=== PATIENT | female | born 1985 | race Caucasian/White ===

== ENCOUNTER 2017-10-02 22:49 | Emergency (ER) | payer OTHER ==
--- NOTE | 2017-10-02 23:22 | ED Physician Documentation ---
History of Present Illness - Stated complaint Stated Complaint: WEAKNESS/LOW HEART RATE - Chief complaint Chief Complaint: General - History obtained from History obtained from: Patient, Family - History of Present Illness Timing: How many hours ago (2) Pain level max: 2 Pain level now: 2 - Additonal information Additional information: Patient is a 32-year-old female who states she was lying in bed feeling very relaxed when she looked at her wristwatch and noticed that her heart rate was 39. It increased back to its normal rate when she got up and started moving around. She does not know what her normal resting heart rate is. She did not take her pulse. She now complains of sharp left-sided chest pain as well. No recent travel, immobilization, surgery. She does not smoke. Nothing makes it better or worse. Review of Systems Constitutional: denies: Fever, Chills Ears: denies: Ear pain Nose: denies: Rhinorrhea / runny nose, Congestion Throat: denies: Sore throat Cardiac: reports: Chest pain / pressure (Left sided, sharp) Respiratory: denies: Dyspnea, Cough, Hemoptysis, Wheezing GI: denies: Abdominal Pain, Nausea, Vomiting, Diarrhea : denies: Now EGA Skin: denies: Rash Musculoskeletal: denies: Neck pain, Back pain Neurologic: denies: Headache PD PAST MEDICAL HISTORY - Past Medical History Past Medical History: No - Past Surgical History Past Surgical History: Yes HEENT: Tonsil/Adenoidectomy - Allergies Allergies/Adverse Reactions: Allergies Allergy/AdvReac Type Severity Reaction Status Date / Time amoxicillin Allergy Hives Verified 10/02/17 23:05 - Social History Does the pt smoke?: No Smoking Status: Never smoker Does the pt drink ETOH?: Yes Does the pt have substance abuse?: No - Immunizations Immunizations are current?: Yes PD ED PE NORMAL - Vitals Vital signs reviewed: Yes - General General: Alert and oriented X 3 - HEENT HEENT: Moist mucous membranes - Neck Neck: Supple, no meningeal sign - Cardiac Cardiac: RRR, No murmur, Strong equal pulses - Respiratory Respiratory: No respiratory distress, Clear bilaterally - Abdomen Abdomen: Soft, Non tender, Non distended - Back Back: No CVA TTP, No spinal TTP - Derm Derm: Warm and dry, No rash - Extremities Extremities: No edema, No calf tenderness / cord - Neuro Neuro: Alert and oriented X 3 - Psych Psych: Normal mood, Normal affect Results - Vitals Vitals: Vital Signs - 24 hr 10/02/17 10/03/17 23:02 00:00 Temperature 36.7 C Heart Rate 70 67 Respiratory 16 14 Rate Blood Pressure 125/86 H 111/78 O2 Saturation 99 99 Oxygen O2 Source Room air - EKG (time done) 2315 Rate: Rate (enter#) (81) Rhythm: NSR [place]: Normal Intervals: Normal FL QRS: Normal Ischemia: Normal ST segments - Labs Labs: Laboratory Tests 10/02/17 10/02/17 10/02/17 23:20 23:40 23:40 WBC 7.2 RBC 4.46 Hgb 13.1 Hct 39.0 MCV 87.3 MCH 29.4 MCHC 33.7 RDW 13.2 Plt Count 222 MPV 7.0 L Neut # (Auto) 3.5 Lymph # (Auto) 3.0 [place] # (Auto) 0.5 Eos # (Auto) 0.1 Baso # (Auto) 0.0 Absolute Nucleated RBC 0.00 Nucleated RBC % 0.0 Sodium 139 Potassium 3.6 Chloride 103 Carbon Dioxide 31 Anion Gap 5.0 L BUN 11 Creatinine 0.7 Estimated GFR (MDRD) 98 Glucose 101 H Calcium 9.7 Total Bilirubin 0.9 AST 17 ALT 13 Alkaline Phosphatase 35 L Troponin I Total Protein 6.8 Albumin 4.0 Globulin 2.8 Albumin/Globulin Ratio 1.4 Lipase 29 TSH Free T4 Urine Color YELLOW Urine Clarity CLEAR Urine pH 6.5 Ur Specific [place] <=1.005 Urine Protein NEGATIVE Urine Glucose (UA) NEGATIVE Urine Ketones NEGATIVE Urine Occult Blood SMALL H Urine Nitrite NEGATIVE Urine Bilirubin NEGATIVE Urine Urobilinogen 0.2 (NORMAL) Ur Leukocyte Esterase SMALL H Urine RBC 0-5 Urine WBC 6-10 H Ur Squamous Epith Cells MOD Squamous H Urine Bacteria Few Ur Microscopic Review INDICATED Urine Culture Comments NOT INDICATED Urine HCG, Qual NEGATIVE 10/02/17 10/02/17 23:40 23:40 WBC RBC Hgb Hct MCV MCH MCHC RDW Plt Count MPV Neut # (Auto) Lymph # (Auto) [place] # (Auto) Eos # (Auto) Baso # (Auto) Absolute Nucleated RBC Nucleated RBC % Sodium Potassium Chloride Carbon Dioxide Anion Gap BUN Creatinine Estimated GFR (MDRD) Glucose Calcium Total Bilirubin AST ALT Alkaline Phosphatase Troponin I < 0.04 Total Protein Albumin Globulin Albumin/Globulin Ratio Lipase TSH 2.20 Free T4 1.04 Urine Color Urine Clarity Urine pH Ur Specific [place] Urine Protein Urine Glucose (UA) Urine Ketones Urine Occult Blood Urine Nitrite Urine Bilirubin Urine Urobilinogen Ur Leukocyte Esterase Urine RBC Urine WBC Ur Squamous Epith Cells Urine Bacteria Ur Microscopic Review Urine Culture Comments Urine HCG, Qual - Rads (name of study) cxr Radiology: Prelim report reviewed, EMP read contemporaneously, See rad report ( normal) PD MEDICAL DECISION MAKING - ED course Complexity details: reviewed results, re-evaluated patient, considered differential, d/w patient ED course: Patient is a 32-year-old female who presents to the emergency department with left-sided sharp chest pain and A low pulse rate reading on her watch earlier today. Symptoms resolved in the emergency department. No acute findings on x- ray, EKG, laboratory testing. She is well-appearing, nontoxic. Afebrile. No evidence of aortic dissection, pulmonary embolus, acute PR. Patient counseled regarding signs and symptoms for which I believe and urgent re-evaluation would be necessary. Patient with good understanding of and agreement to plan and is comfortable going home at this time This document was made in part using voice recognition software. While efforts are made to proofread this document, sound alike and grammatical errors may occur. - Sepsis Event Vital Signs: Vital Signs - 24 hr 10/02/17 10/03/17 23:02 00:00 Temperature 36.7 C Heart Rate 70 67 Respiratory 16 14 Rate Blood Pressure 125/86 H 111/78 O2 Saturation 99 99 Oxygen O2 Source Room air Departure - Departure Disposition: 01 Home, Self Care Clinical Impression: Bradycardia, Weakness Condition: Good Instructions: ED Bradycardia Follow-Up: your,doctor in 1 week [Other] Comments: The cause of your symptoms is unclear tonight. Return if you worsen. Make sure to follow-up closely with your doctor for further care. Your laboratory testing including your thyroid testing is normal Discharge Date/Time: 10/03/17 00:53
[2017-10-02 23:41] LABS: BILIRUBIN,URINE NEGATIVE (NEGATIVE); GLUCOSE, URINE (UA) NEGATIVE (NEGATIVE); KETONES,URINE (UA) NEGATIVE (NEGATIVE); LEUKOCYTE ESTERASE, URINE SMALL (NEGATIVE); NITRITE,URINE NEGATIVE (NEGATIVE); OCCULT BLOOD,URINE SMALL (NEGATIVE); PH,URINE 6.5 PH (5.0-7.5); PROTEIN,URINE NEGATIVE (NEGATIVE); UROBILINOGEN,URINE 0.2 (NORMAL) E.U./dL (NORMAL)
[2017-10-02 23:42] LABS: CLARITY,URINE CLEAR (CLEAR)
[2017-10-02 23:43] LABS: HCG UR QUAL NEGATIVE
[2017-10-02 23:47] LABS: BACTERIA,URINE Few /HPF (None Seen); RBC,URINE 0-5 /HPF (0-5); SQUAMOUS EPITHELIAL CELL,UR MOD Squamous (<= Few)
[2017-10-03] LABS: BASOPHILS % (AUTO) 0.2 %; EOSINOPHILS # (AUTO) 0.1 10^3/uL (0.0-0.7); EOSINOPHILS % (AUTO) 1.9 %; HGB - HEMOGLOBIN 13.1 g/dL (12.0-16.0); LYMPHOCYTES % (AUTO) 42.3 %; MEAN CORPUSCULAR HEMOGLOBIN 29.4 pg (27.0-31.0); MEAN CORPUSCULAR HGB CONC 33.7 g/dL (32.0-36.0); MEAN CORPUSCULAR VOLUME 87.3 fL (81.0-99.0); MONOCYTES # (AUTO) 0.5 10^3/uL (0.0-1.0); MONOCYTES % (AUTO) 6.7 %; NEUTROPHILS # (AUTO) 3.5 10^3/uL (1.5-6.6); NEUTROPHILS % (AUTO) 48.9 %; PLT - PLATELET COUNT 222 10^3/uL (130-450); RED BLOOD COUNT 4.46 10^6/uL (4.20-5.40); RED CELL DISTRIBUTION WIDTH 13.2 % (12.0-15.0); WHITE BLOOD COUNT 7.2 x10^3/uL (4.8-10.8)
--- NOTE | 2017-10-03 00:02 | XRAY Report ---
Procedure Date: 10/02/2017 Accession Number: [id number] / [id number] Procedure: XR - Chest 1 View X-Ray CPT Code: 14477 FULL RESULT: EXAM: CHEST RADIOGRAPHY EXAM DATE: 10/02/2017 11:55 PM. CLINICAL HISTORY: Chest pain. COMPARISON: None. TECHNIQUE: 1 view. FINDINGS: Lungs/Pleura: No alveolar consolidation or pleural effusion seen. No pneumothorax. Mediastinum: Within exam limitations, the cardiomediastinal contour is normal. Other: None. IMPRESSION: 1. No acute abnormality seen in the chest. RADIA
[2017-10-03 00:13] LABS: ALBUMIN/GLOBULIN RATIO 1.4 (1.0-2.2); BILIRUBIN,TOTAL 0.9 mg/dL (0.2-1.0); CALCIUM 9.7 mg/dL (8.5-10.3); CREATININE 0.7 mg/dL (0.4-1.0); TOTAL PROTEIN 6.8 g/dL (6.7-8.2)
[2017-10-03 00:29] VITALS: BP 111/78
[2017-10-03 00:41] LABS: THYROID STIMULATING HORMONE 2.2 uIU/mL (0.34-5.60)
[2017-10-03 00:43] LABS: FREE T4 (FREE THYROXINE) 1.04 ng/dL (0.58-1.64)
== END 2017-10-03 00:53 | disposition home or self-care (01) ==
LOC: ED 22:49
DX: R00.1 Bradycardia, unspecified (principal); R53.1 Weakness
CPT/HCPCS: 36415; 71045; 80053; 81001; 81003; 81025; 83690; 84439; 84443; 84484; 85025; 87086; 93005; 99283

== ENCOUNTER 2017-12-19 17:35 | Emergency (ER) | payer OTHER ==
--- NOTE | 2017-12-19 19:21 | ED Physician Documentation ---
PD HPI URI - Stated complaint Stated Complaint: SOA/COUGH - Chief complaint Chief Complaint: Resp - History obtained from History obtained from: Patient - History of Present Illness Timing - onset: How many days ago (few) Timing duration: Days (few) Timing details: Gradual onset, Still present Associated symptoms: Fever (subjective), Chills, Productive cough, Dyspnea. No: Nasal congestion, Sore throat, Bilateral edema, Unilateral edema Contributing factors: COPD / asthma. No: Sick contact, Travel Improves by: Rest Worsened by: Activity, Breathing Recently seen: Not recently seen Review of Systems Constitutional: reports: Fever, Chills, Myalgias Nose: denies: Rhinorrhea / runny nose, Congestion Throat: denies: Sore throat Cardiac: reports: Chest pain / pressure (with coughing) Respiratory: reports: Dyspnea, Cough, Wheezing GI: denies: Nausea, Vomiting Skin: denies: Rash PD PAST MEDICAL HISTORY - Past Medical History Past Medical History: No Cardiovascular: None Respiratory: Asthma Neuro: None Endocrine/Autoimmune: None - Past Surgical History Past Surgical History: Yes HEENT: Tonsil/Adenoidectomy - Present Medications Home Medications: Ambulatory Orders Medication Instructions Recorded Confirmed Albuterol Sulf [Ventolin Hfa 2 - 3 puffs INH Q4HR PRN #1 inhaler 12/19/17 Inhaler] Benzonatate [Tessalon] 100 mg PO TID PRN #25 capsule 12/19/17 Dexamethasone [Decadron] 4 mg PO DAILY #5 tablet 12/19/17 - Allergies Allergies/Adverse Reactions: Allergies Allergy/AdvReac Type Severity Reaction Status Date / Time amoxicillin Allergy Hives Verified 10/02/17 23:05 - Social History Does the pt smoke?: No Smoking Status: Never smoker Does the pt drink ETOH?: Yes Does the pt have substance abuse?: No - Immunizations Immunizations are current?: Yes PD ED PE NORMAL - Vitals Vital signs reviewed: Yes - General General: Alert and oriented X 3, Well developed/nourished - HEENT HEENT: Pharynx benign - Neck Neck: Supple, no meningeal sign, No adenopathy - Cardiac Cardiac: RRR, No murmur - Respiratory Respiratory: No: Clear bilaterally (no coarse sounds; has tight expirations, with hint of wheezing. ) - Abdomen Abdomen: Soft, Non tender Results - Vitals Vitals: Vital Signs - 24 hr 12/19/17 17:57 Temperature 36.6 C Heart Rate 63 Respiratory 16 Rate Blood Pressure 115/72 O2 Saturation 100 Oxygen O2 Source Room air PD MEDICAL DECISION MAKING - ED course Complexity details: considered differential, d/w patient Departure - Departure Disposition: 01 Home, Self Care Clinical Impression: URI (upper respiratory infection) Qualifiers: URI type: unspecified URI Qualified Code(s): J06.9 - Acute upper respiratory infection, unspecified Dyspnea Qualifiers: Dyspnea type: shortness of breath Qualified Code(s): R06.02 - Shortness of breath Condition: Stable Record reviewed to determine appropriate education?: Yes Instructions: ED URI Viral W Wheezing Follow-Up: YAJAIRA OSHEA PA-C [Primary Care Provider] - Prescriptions: Albuterol Sulf [Ventolin Hfa Inhaler] 2 - 3 puffs INH Q4HR PRN #1 inhaler PRN Reason: Shortness Of Air/Wheezing Benzonatate [Tessalon] 100 mg PO TID PRN #25 capsule PRN Reason: Cough Dexamethasone [Decadron] 4 mg PO DAILY #5 tablet Comments: Your symptoms sound likely to be a viral infection although environmental allergies would be a possibility as well. For these he would use an albuterol inhaler 2-3 puffs 4 times a day as needed for shortness of breath and wheezing. Use Decadron steroid anti-inflammatory for 5 more days. He can add Tessalon if needed for the cough. Tylenol if needed for pains or aches. Recheck if not improving over the next several days to week. Return sooner if worsening. Discharge Date/Time: 12/19/17 20:27
[2017-12-19] MEDS ORDERED: BENZONATATE 100 MG CAPSULE PO STA (19:59)
[2017-12-19] MEDS ORDERED: ALBUTEROL NEB 2.5 MG/3 ML INH STA (19:59)
[2017-12-19] MEDS ORDERED: DEXAMETHASONE 10 MG/ML VIAL PO STA (19:59)
[2017-12-19 20:22] VITALS: BP 113/58
== END 2017-12-19 20:27 | disposition home or self-care (01) ==
LOC: ED 17:35
DX: J06.9 Acute upper respiratory infection, unspecified (principal)
CPT/HCPCS: 94640; 94664; 99283; A9270

== ENCOUNTER 2018-07-04 23:49 | Inpatient (IN) | payer OTHER ==
[2018-07-05] MEDS ORDERED: SODIUM CHLORIDE FLUSH 0.9% 10 ML SYRINGE IVP PRN (00:44)
[2018-07-05] MEDS ORDERED: OXYTOCIN/SODIUM CHLORIDE 500 ML IV ONE (00:47)
[2018-07-05] MEDS ORDERED: LACTATED RINGERS 1,000 ML IV ONE (00:47)
[2018-07-05] MEDS ORDERED: SODIUM CHLORIDE FLUSH 0.9% 10 ML SYRINGE ONE (00:47)
[2018-07-05 01:31] LABS: BASOPHILS # (AUTO) 0.1 10^3/uL (0.0-0.1); BASOPHILS % (AUTO) 0.7 %; EOSINOPHILS # (AUTO) 0.1 10^3/uL (0.0-0.7); EOSINOPHILS % (AUTO) 0.8 %; HGB - HEMOGLOBIN 11.3 g/dL (12.0-16.0); LYMPHOCYTES % (AUTO) 26.2 %; MEAN CORPUSCULAR HEMOGLOBIN 28.1 pg (27.0-31.0); MEAN CORPUSCULAR HGB CONC 32.7 g/dL (32.0-36.0); MEAN PLATELET VOLUME 6.4 fL (7.9-10.8); MONOCYTES # (AUTO) 0.8 10^3/uL (0.0-1.0); MONOCYTES % (AUTO) 6.7 %; NEUTROPHILS # (AUTO) 7.4 10^3/uL (1.5-6.6); NEUTROPHILS % (AUTO) 65.6 %; PLT - PLATELET COUNT 246 10^3/uL (130-450); RED CELL DISTRIBUTION WIDTH 12.9 % (12.0-15.0); WHITE BLOOD COUNT 11.3 x10^3/uL (4.8-10.8)
--- NOTE | 2018-07-05 06:01 | HISTORY & PHYSICAL EXAMINATION ---
Admit History - Visit Reason Visit Reason: Contractions (Pt persented with contractions which started at 1600 07/04/18. became very strong at 2100. presented at 2400 4 cm with blooody show.) - : 1 Parity: 0 Premature: 0 Ectopic: 0 : 0 Care: positive: DEYSI-Toney (Started Care [facility] at 10 weeks with early US for dating. Transfered at 20 weeks), Other (Transfered at 24 weeks to [place], [place]. regular visits) Risk/History: positive: Other (Pt gives Hx of calcifications of the placenta at 36 weeks) Smoking Status: Former smoker - Mother's Labs Mother's Blood Type: positive: A Mother's RH: positive: Positive GBS: positive: Group B Step Negative Rubella Status: positive: Immune Meds/Allgy - Home Medications Home Medications: Ambulatory Orders Medication Instructions Recorded Confirmed Albuterol Sulf [Ventolin Hfa 2 - 3 puffs INH Q4HR PRN #1 inhaler 12/19/17 Inhaler] Benzonatate [Tessalon] 100 mg PO TID PRN #25 capsule 12/19/17 Dexamethasone [Decadron] 4 mg PO DAILY #5 tablet 12/19/17 - Allergies Allergies/Adverse Reactions: Allergies Allergy/AdvReac Type Severity Reaction Status Date / Time amoxicillin Allergy Hives Verified 10/02/17 23:05 Review of Systems - Constitutional Constitutional: denies: Fatigue - Eyes Eyes: denies: Pain - Psychiatric Psychiatric: reports: Anxiety Physical - Abdominal Exam Vital Signs: Temp Pulse Resp BP Pulse Ox 36.7 C 106 H 16 123/85 H 100 07/05/18 00:44 07/05/18 00:44 07/05/18 00:44 07/05/18 00:44 07/05/18 00:44 Contraction Intensity: positive: Strong (Currently having strong contractions) Uterine Resting Tone: positive: Soft - Monitoring Heart Rate Baseline: 130 Strip Review: positive: Category I - Presentation Presentation: positive: Vertex - Vaginal Exam Membranes: positive: Membranes intact (AROM of forbag minimal fluid seen) Dilation (in cm): 8 Effacement (%): 100 Station: positive: 1 Cervical Position: positive: Anterior - Speculum Exam Findings: positive: Other (AROM minimal fluid) Plan for Labor - Plan For Labor I expect patient to be DC'd or transferred within 96 hours.: Yes Plan for Labor: Physical exam PEREOM Heart RRR Lungs Clear Abdomin Gravid with contractions DTR +2 bilateral no edema Impression: 32 yo 39.4 weeks Early labor Pt requested to stay here. Admit and AROM expect . Pt has gone natural.
[2018-07-05] MEDS: LACTATED RINGERS 1,000 ML IV SCH ×5 (07:00→14:26)
[2018-07-05] MEDS ORDERED: LIDOCAINE-MPF 1% 30 ML VIAL ID PRN (07:05)
[2018-07-05] MEDS ORDERED: LIDOCAINE 1% 50 ML MDV TD SCH (07:05)
[2018-07-05] MEDS ORDERED: METHYLERGONOVINE 0.2 MG/ML AMP ONE (07:08)
[2018-07-05] MEDS ORDERED: oxyCODONE 5 MG TABLET PO PRN (07:56)
[2018-07-05] MEDS ORDERED: MAGNESIUM HYDROXIDE 2,400 MG/30 ML UDC PO PRN (07:56)
[2018-07-05] MEDS ORDERED: ONDANSETRON 4 MG/2 ML VIAL IVP PRN (07:56)
[2018-07-05] MEDS ORDERED: diphenhydrAMINE 25 MG CAPSULE PO PRN (07:56)
[2018-07-05] MEDS ORDERED: OXYTOCIN/SODIUM CHLORIDE 500 ML IV PRN (07:56)
[2018-07-05] MEDS ORDERED: HYDROCORTISONE 1% CREAM 28 GM TUBE PR PRN (07:56)
--- NOTE | 2018-07-05 08:02 | DELIVERY NOTE ---
Delivery Note - Labor Labor: positive: Spontaneous - Delivery Method Delivery Method: positive: Spontaneous vaginal delivery - Presentation Presentation: positive: Vertex, ROP - right occiput posterior - Nuchal Cord Nuchal Cord: positive: Present (loose X 1) - Anesthetic Anesthetic Type: Anesthetic: positive: Lidocaine - 1% plain Volume: positive: Other (30 ml) - Amniotic Fluid Description Amniotic Fluid Description: positive: Clear - Episiotomy Type Episiotomy Type: positive: Midline - Laceration Laceration: positive: 2nd degree - Suture Suture Type: positive: Vicryl Suture Size: positive: 3-0 - Delivery Outcome Delivery Outcome: positive: Livebirth - [place]: positive: Placed in direct skin contact with mother, Bulb syringe, [place] used sex: positive: Male - Placenta Placenta: positive: Intact, Spontaneous, Other (Sent for Pathology. Hx of early calcification) - Estimated Blood Loss Estimated Blood Loss (in cc): 350 - Post Delivery Events Post Delivery Events: positive: No post delivery events - Delivery Comments (Free Text/Narrative) Delivery Comments (Free Text/Narrative): Pt presented at 4 cm @2400. Allowed to labor. Used some Nitrous for analgesia. AROM at 8 cm, minimal fluid seen. Complete at 0620. Excellent pushing. 47 min second stage at 0707 Live Male infant 9/9 ROP. Nucal cord delivered thru. Episiotomy cut because of recurrent decelerations nadar of 80-90. Placenta followed at 0712 inspected and noted to be complete as well as calcifications seen. repare with 3-0 vicril and local.
[2018-07-05] MEDS: WITCH HAZEL/GLYCERIN 1 EACH MED..PAD TOP PRN (08:09)
[2018-07-05] MEDS: SODIUM CHLORIDE FLUSH 0.9% 10 ML SYRINGE IVP SCH ×3 (08:30→18:51)
[2018-07-05] MEDS: IBUPROFEN 600 MG TABLET PO SCH ×3 (11:34→20:58)
[2018-07-05] MEDS: DOCUSATE SODIUM 100 MG CAPSULE PO SCH (12:17)
[2018-07-05] MEDS ORDERED: LIDOCAINE-MPF 1% 30 ML VIAL ONE (17:26)
[2018-07-05] MEDS: ACETAMINOPHEN 325 MG TABLET PO PRN (20:58)
[2018-07-06] MEDS: DOCUSATE SODIUM 100 MG CAPSULE PO SCH ×3 (03:15→21:46)
[2018-07-06] MEDS: IBUPROFEN 600 MG TABLET PO SCH ×4 (03:15→21:46)
[2018-07-06] MEDS: ACETAMINOPHEN 325 MG TABLET PO PRN ×3 (03:45→21:46)
--- NOTE | 2018-07-06 10:12 | PROVIDER PROGRESS NOTE ---
Subjective - Prog Note Date Prog Note Date: 07/06/18 Prog Note Time: 10:09 - Subjective Pt reports feeling: Improved (Pain scale 0/10. baby latching. notes tailbone brusing) Objective - Vital Signs/Intake & Output Reviewed Vital Signs: Yes Vital Signs: Vital Signs x48h Temp Pulse Resp BP Pulse Ox 07/06/18 08:40 36.6 C 99 18 125/77 100 07/06/18 03:14 36.6 C 80 16 114/74 100 Intake & Output: Intake & Output 07/03/18 07/04/18 07/05/18 07/06/18 23:59 23:59 23:59 23:59 Intake Total 1500 Balance 1500 - Objective General Appearance: positive: No acute distress, Alert Respiratory: positive: Chest non-tender, No respiratory distress, Breath sounds nml Cardiovascular: positive: Regular rate & rhythm, No murmur, No gallop Abdomen: positive: Non-tender, Mass (U-3) Back: negative: CVA tenderness (R), CVA tenderness (L) Extremities: negative: Calf tenderness, Becka's sign/cords Neurologic/Psychiatric: positive: Oriented x3 - Lab Results Fish Bones: 07/05/18 01:15 Assessment/Plan - Problem List (1) (spontaneous vaginal delivery) Impression: excellent progress. continue care encouraged breast feeding
[2018-07-07] MEDS: IBUPROFEN 600 MG TABLET PO SCH ×2 (05:52→11:53)
[2018-07-07] MEDS: ACETAMINOPHEN 325 MG TABLET PO PRN ×2 (05:52→11:52)
--- NOTE | 2018-07-07 09:05 | PROVIDER PROGRESS NOTE ---
Subjective - Prog Note Date Prog Note Date: 07/07/18 Prog Note Time: 09:02 - Subjective Pt reports feeling: Improved (Breast feeding. Reviewed S/S of mastitis, infection. Contraception) Objective - Vital Signs/Intake & Output Reviewed Vital Signs: Yes Vital Signs: Vital Signs x48h Temp Pulse Resp BP Pulse Ox 07/07/18 04:28 36.7 C 100 18 124/77 100 Intake & Output: Intake & Output 07/04/18 07/05/18 07/06/18 07/07/18 23:59 23:59 23:59 23:59 Intake Total 1500 Balance 1500 - Objective General Appearance: positive: No acute distress, Alert Respiratory: positive: Chest non-tender, No respiratory distress, Breath sounds nml Cardiovascular: positive: Regular rate & rhythm, No murmur, No gallop Abdomen: positive: Non-tender, Nml bowel sounds, Mass (U-4) Extremities: negative: Calf tenderness, Becka's sign/cords - Lab Results Fish Bones: 07/05/18 01:15 Assessment/Plan - Problem List (1) (spontaneous vaginal delivery) Impression: Progressing well Discharge. Discharge medications home supply mortin Colace RTC 1 week
[2018-07-07] MEDS: DOCUSATE SODIUM 100 MG CAPSULE PO SCH (09:09)
--- NOTE | 2018-07-07 09:09 | Discharge Plan ---
Discharge Plan Disposition: 01 Home, Self Care Condition: Good Diet: Regular Activity Restrictions: Pelvic rest 6 weeks Shower Restrictions: No Driving Restrictions: No No Smoking: If you smoke, Please STOP! Call for help.
[2018-07-07] MEDS: WITCH HAZEL/GLYCERIN 1 EACH MED..PAD TOP PRN (11:53)
[2018-07-07 12:06] VITALS: BP 121/85
--- NOTE | 2018-07-07 12:22 | Labor Flowsheet ---
Labor Flowsheet Datetime Report Generated by CPN: 07/07/2018 12:22 Datetime: 07/07/2018 11:56 VITAL SIGNS NBP Sys/Martina/Mean (mmHg): 121 : 85 : 92 Pulse: 106 LaborFlag: Labor Datetime: 07/05/2018 23:24 SpO2 (%): 100 Datetime: 07/05/2018 07:05 Stage 2 Comments: episiotomy Datetime: 07/05/2018 06:30 PAIN Pain Scale: 10 Pain Presence: Intermittent Pain Type: Burning; Cramping; Contraction Pain Location: Abdomen; Back Pain Relief Measures: Comfort Measures Pain Coping: Breathing Through Contractions; Declines Medication or Epidural; Crying Datetime: 07/05/2018 06:24 STAGE 2 Pushing: Coached on Pushing; Urge to Push Pushing Position: Pushing with Contractions; Pushing Lithotomy Pushing Progress: Pushing Effectively with Contractions Datetime: 07/05/2018 06:20 VAGINAL EXAM Dilatation (cm): 10.0 Effacement (%): 100 Station: 1 Exam by: Dr. Giem Datetime: 07/05/2018 06:15 Patient Care Comments: vomiting Datetime: 07/05/2018 06:14 Comments: deceleration to 120 with variable to 90's with return to baseline Datetime: 07/05/2018 06:08 Vaginal Exam Comments: anterior lip Datetime: 07/05/2018 06:01 Actions for Decelerations: Oxygen Applied Datetime: 07/05/2018 06:00 Contraction Comments: urge to push, breathing through contractions Datetime: 07/05/2018 05:51 Membrane Status: Ruptured Membranes Rupture Method: Artificial Amniotic Fluid Color: Clear Amniotic Fluid Amount: Scant Amniotic Fluid Odor: Normal Vaginal Bleeding: Normal Show Cervix, Consistency: Soft Cervix, Position: Anterior Datetime: 07/05/2018 05:45 COMMUNICATION Communication: Provider at Bedside Communication Comments: Dr. Giem @ bedside Datetime: 07/05/2018 05:30 UTERINE ACTIVITY Monitor Mode: External Frequency (min): 1.5-3 Quality: Strong Duration (sec): 40-90 Pattern: Normal: <= 5 Contractions in 10 Minutes Resting Tone (Palpate): Relaxed ASSESSMENT A Monitor Mode: Telemetry FHR Baseline Rate : 130 Variability: Moderate 6-25 bpm Accelerations: 15X15 Decelerations: None Category: Category I Datetime: 07/05/2018 05:25 MEDICATIONS Medication Comments: Nitrous Oxide Datetime: 07/05/2018 05:24 Provider Notified (Name): Dr. Giem Notification Reason: Status Update Datetime: 07/05/2018 04:54 I/O Interventions: Up to BR Datetime: 07/05/2018 04:30 FHR Baseline Changes: No Baseline Change Datetime: 07/05/2018 04:00 Monitor Interventions for UA: [place] Adjusted PATIENT CARE IV/Blood Work: IV Bolus Started; IV Bag Number @ 1 Datetime: 07/05/2018 03:53 Patient Position/Activity: Birthing Ball Datetime: 07/05/2018 03:49 Monitor Interventions for FHR: Ultrasound Adjusted Datetime: 07/05/2018 03:48 Respirations: 20 Temperature (C): 36.8 Datetime: 07/05/2018 03:25 Pain Assessment Comments: pt states she is coping with pain well, does not desire interventions at this time Comfort Measures: Breathing/Relaxation; Coaching; Family Support Datetime: 07/05/2018 03:08 TEACHING Instructional Method: Verbal; Patient Instructed; Family/Support Person Instructed Plan of Care: Plan of Care Discussed; Labor Labor/Induction: Labor Stages Pain Management: Pain Scale/Goals; Comfort Measures Related: Activity and Rest Teaching Comments: Discussed positions of comfort during labor. Datetime: 07/05/2018 01:33 Stage of : Labor
--- NOTE | 2018-07-22 12:07 | DISCHARGE SUMMARY ---
Physician: Adis Edouard MD DATE OF ADMISSION: 07/05/2018 DATE OF DISCHARGE: 07/07/2018 ADMITTING DIAGNOSES 1. A 32-year-old, G1, P0, 39.4 weeks. 2. Active labor. DISCHARGE DIAGNOSES 1. A 32-year-old, G1, P0, 39.4 weeks. 2. Active labor. 3. Spontaneous delivery of live male , Apgars 9 and 9. Second-degree laceration, right occiput posterior, nuchal cord x1. PROCEDURES 1. AROM. 2. Nitrous oxide. 3. Episiotomy with repair. 4. Spontaneous vaginal delivery. PRESENTING HISTORY: Patient is a 32-year-old, G1, P0 female. She received her care at [facility] starting at 10 weeks' gestational age with early ultrasound dating. She transferred at 20 weeks. She was seen at 24 weeks in [place], [place], with regular visits. She presented to our Labor and Delivery with contractions. She does give a history of having had calcifications noted on her placenta at 36 weeks. Her labs showed her to be A positive. She was GBS negative. She is rubella immune. LABORATORIES: Patient on admission had a white count of 11.3, hemoglobin was 11.3, hematocrit was 34.4, platelets were 246. HOSPITAL COURSE: Patient was admitted. She progressed quickly from 4 cm to 8 cm. During this timeframe, she received some nitrous oxide for analgesia, which did not give her a lot of relief; however, it made her labor tolerable. She presented at 4 cm at 2400. She was allowed to labor. She was artificially ruptured her membranes at 8 cm. Minimal fluid was seen. She reached complete at 6:20 and, with excellent pushing with a second stage of 47 minutes, she delivered at 7:07 a live male , Apgars 9 and 9. The infant was right occiput posterior, and there was a nuchal cord x1. At time of delivery, she had decelerations which reached the 80s-90s, and for this reason episiotomy was cut. Her placenta followed soon at 7:12, it was inspected and noted to be intact. There is evidence of calcifications. Her repair was achieved utilizing 3-0 Vicryl. Her course was unremarkable. Her diet was advanced. She was a breast feeder. She had good analgesia. She was discharged to home on the second day . DISCHARGE MEDICATIONS 1. Colace. 2. She had her home supply of Motrin, did not require any narcotics. She was instructed to follow up in the clinic in 1 week. She was told to report chills, fevers, temperatures, or vaginal discharge that was foul smelling. She was also instructed to watch her breasts for evidence of infection. She was also informed that is not adequate contraception. TD: 07/22/2018 09:41 YENNY
== END 2018-07-07 12:10 | disposition home or self-care (01) | DRG 807 ==
LOC: WFO 23:49 → FBP 23:54 → WFO 07-05 00:24 → FBP 07-05 00:25
PROVIDERS: ADMIT Obstetrics & Gynecology; ATTEND Obstetrics & Gynecology
PROC: 10E0XZZ Delivery of Products of Conception, External Approach (ICD-10-PCS; principal; 2018-07-05)
PROC: 10907ZC Drainage of Amniotic Fluid, Therapeutic from Products of Conception, Via Natural or Artificial Opening (ICD-10-PCS; 2018-07-05)
PROC: 0W8NXZZ Division of Female Perineum, External Approach (ICD-10-PCS; 2018-07-05)
DX: O43.893 Other placental disorders, third trimester (principal); Z37.0 Single live birth; O64.0XX0 Obstructed labor due to incomplete rotation of fetal head, not applicable or unspecified; O69.81X0 Labor and delivery complicated by cord around neck, without compression, not applicable or unspecified; Z3A.39 39 weeks gestation of pregnancy; O76 Abnormality in fetal heart rate and rhythm complicating labor and delivery
CPT/HCPCS: 85025; A9270; J7120; 99213